=== PATIENT | female | born 1950 | race Caucasian/White ===

== ENCOUNTER → 2017-06-03 15:42 | Outpatient (CLI) | payer MEDICARE, SELFPAY ==
[2017-06-03 19:10] LABS: T4 Free Direct 0.86 ng/dL (0.76-1.46); Thyroid Stim Hormone (TSH) 2.85 uIU/mL (0.358-3.74)
== END ==
PROVIDERS: Family Provider Family Medicine; PCP Student in an Organized Health Care Education/Training Program; Visit Provider Dermatology
DX: L65.9 Nonscarring hair loss, unspecified (principal); L82.0 Inflamed seborrheic keratosis; R20.8 Other disturbances of skin sensation; L53.8 Other specified erythematous conditions; D22.39 Melanocytic nevi of other parts of face; Z78.9 Other specified health status
CPT/HCPCS: 36415; 84439; 84443

== ENCOUNTER 2018-08-25 12:00 | Observation (INO) | payer MEDICARE, SELFPAY ==
[2018-08-25] VITALS (13 sets, daily range): BP systolic 111–165; BP diastolic 74–85; PULSE 80–106; RESP 16–24; TEMP 36.4–37.2; O2SAT 94–98; BMI 37.9; BMI 37.0
--- NOTE | 2018-08-25 12:02 | NURSING ---
NO OLD EKGS
--- NOTE | 2018-08-25 12:14 | EKG12_ITS ---
Test Reason : CHEST TIGHTNESS Blood Pressure : / mmHG Vent. Rate : 098 BPM Atrial Rate : 098 BPM P-R Int : 120 ms QRS Dur : 092 ms QT Int : 356 ms P-R-T Axes : 047 022 061 degrees QTc Int : 454 ms Normal sinus rhythm Normal ECG Confirmed by OLGA TYLER, HOLLI ([id number]), electronic news gathering editor AIDAN PALACIOS ([id number]) on 08/27/2018 6:37:15 AM Referred By: Joe Green Confirmed By:HOLLI ESPINOZA MD
--- NOTE | 2018-08-25 12:14 | RAD_ITS ---
STUDY: X-RAY CHEST REASON FOR EXAM: Female, 67 years old. Chest pain. TECHNIQUE: Single AP portable view of the chest. COMPARISON: None. FINDINGS: EKG electrodes are seen. The lungs are clear and expanded. There is no demonstrated pleural abnormality. Normal size heart. Normal mediastinum and daisha. Normal visualized pulmonary arteries. There is atherosclerotic tortuosity of the aortic arch and descending thoracic aorta. There are diffuse degenerative changes of the visualized thoracic spine. Normal visualized ribs, clavicles, and shoulders. There is no demonstrated abnormality of the visualized soft tissue structures of the upper abdomen. RAD/Chest 1 View (Portable) IMPRESSION: No acute abnormality is seen. Electronically Signed: Gurdeep Pugh, at 12:50 EDT , Service support ,
[2018-08-25 12:20] LABS: Absolute Lymphocyte Count 2.12 X10^3/ul (0.83-4.51); Absolute Neutrophil Count 3.9 X10^3/uL (2.0-7.7); Basophil# 0.02 X10^3/uL; Basophil% 0.3 % (0-1); Eosinophil# 0.09 X10^3/uL; Eosinophils% 1.4 % (0-5); Hematocrit 40.9 % (37-47); Hemoglobin 13.7 g/dl (12.0-15.0); Lymphocyte # 2.12 X10^3/ul (4.0); Lymphocyte % 33.1 % (19-41); Mean Corp Hgb Conc 33.5 g/gl (32-36); Mean Corpuscular Hgb 28.8 pg (27.0-32.0); Mean Corpuscular Volume 86.1 fL (81-99); Mean Platelet Vol. 9.9 fl (6.2-12.0); Monocyte# 0.31 X10^3/uL; Monocyte% 4.8 % (0-10); Neutrophil # 3.85 X10^3/uL (2.7-7.7); Neutrophil % 60.2 % (47-70); Platelet Count 221 K/mm3 (150-450); RBC Distribution Width SD 44.2 fl (35.1-43.9); Red Blood Count 4.75 M/mm3 (4.2-5.4); White Blood Count 6.4 K/mm3 (4.4-11.0)
[2018-08-25 12:21] LABS: POSITIVE COUNT NO; POSITIVE DIFFERENTIAL NO; POSITIVE MORPHOLOGY NO
[2018-08-25] MEDS: Aspirin 81 MG TAB.CHEW 324 MG PO (12:24)
[2018-08-25] MEDS: Nitroglycerin SL (ED/IMG/CATH) 0.4 MG TABLET SUBLINGUAL ×2 (12:25→12:31)
[2018-08-25] MEDS: 0.9% Normal Saline 1,000 ML 150 ML IV (12:30)
[2018-08-25 12:44] LABS: Anion Gap 9 (5-15); BUN 12 mg/dL (7-18); BUN/Creat Ratio 11.7 RATIO (10-20); Calcium,Total 9.1 mg/dL (8.5-10.1); Chloride 106 mmol/L (98-107); Creatinine, Serum 1.03 mg/dL (0.55-1.02); EST Glomerular Filtration Rate 57 mL/min (>60); Est Glom Filt Rate - Afr Amer 69 mL/min (>60); Estimated Creatinine Clearance 43.84 ml/min; Glucose 154 mg/dL (74-106); Potassium 3.8 mmol/L (3.5-5.1); Sodium Level 141 mmol/L (136-145)
--- NOTE | 2018-08-25 13:15 | ED.VISSUMM ---
- ER Visit Summary Date of Service: 08/25/18 Chief Complaint: [Chest pain] History of Present Illness: The patient is a 67 F [Zentz to the emergency department complaint of chest discomfort that she is had for about 3 days. Patient had continuous tightness in her upper chest and throat. Patient complains of exertional dyspnea. Patient complains of fatigue. Patient denies any radiation of the pain into the arms or neck or jaw. Patient denies nausea or vomiting. She has not had symptoms like this before. She denies recent travel or surgery. Patient does have history of diabetes and high cholesterol. Her last stress test was in 2016.] Physical Examination: [HEENT-PERRLA, EOMI. Cranial nerves II through XII grossly intact. TMs clear. Mucous membranes moist. No adenopathy. Cardiovascular-regular rate and rhythm without murmur or ectopy Lungs-clear to auscultation, chest wall stable without crepitus or subcu emphysema Abdomen-normoactive bowel sounds, soft, nontender, no rebound or rigidity, no peritoneal signs. Extremities-intact ?4, normal range of motion, normal pulses, atraumatic] Test Results: [EKG obtained arrival shows sinus rhythm with a ventricular rate of 98 bpm with no acute I segment changes. CBC with differential is normal. Chemistries were normal. Troponin was negative. Chest x-ray was normal.] Emergency Department Course and Treatment: [She received aspirin and was given 1 sublingual nitro every 5 minutes x3 and her pain resolved. Patient had a inch of Nitropaste placed to the anterior chest wall.] Treatment Plan: [Admit for further work-up and evaluation of her chest pain] Disposition: [Admit] Impression: [Chest pain-rule out acute coronary syndrome] This note was generated with [employer] dictation software. It may contain incorrect words, spelling, and punctuation that were not noted in review of the chart prior to signing ED Disposition - Plan for ED Patient: Referrals: Wilbert Ayers DO [Primary Care Provider] -
--- NOTE | 2018-08-25 13:18 | NURSING ---
DR HANKINS FOR DR AVILA
--- NOTE | 2018-08-25 13:25 | NURSING ---
PCU OBS PAPA HANKINS
[2018-08-25] MEDS: Nitroglycerin Oint 1 INCH PACKET TRANSDERM. (13:35)
--- NOTE | 2018-08-25 13:43 | PCM.HP.STD ---
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 She states that this feels primarily like a tightness in her neck that makes her short of breath. She stated it has been constant since it started on Thursday. She also has had intermittent left-sided shooting pains in her chest wall. This lasted about 10 minutes. Her symptoms were completely resolved after she had received nitroglycerin today. She does have associated left arm numbness, no radiation into the jaw or back. No diaphoresis, no nausea or vomiting. She had a stress test several years ago which was negative, denies any history of heart disease. She has no smoking history, she does have a family history-her dad had CAD. [] Past Medical History Past Medical History (Chronic Problems): Chronic Problems Obesity (Chronic) HLD (hyperlipidemia) (Chronic) Anxiety and depression (Chronic) Allergies amoxicillin Allergy (Verified 08/25/18 12:17) Rash cortisone Allergy (Verified 08/25/18 12:17) Swelling diclofenac Allergy (Verified 08/25/18 12:17) Rash diphenhydramine [From Benadryl] Allergy (Verified 08/25/18 12:17) Rash latex Allergy (Verified 08/25/18 12:17) Rash selenium Allergy (Verified 08/25/18 12:17) Rash sucralfate Allergy (Verified 08/25/18 12:17) Rash tree and shrub pollen Allergy (Verified 08/25/18 12:17) Other SEASONAL ALLERGIES acetaminophen [From Percocet] Adverse Reaction (Verified 08/25/18 12:17) Other FACIAL FLUSHING azithromycin Adverse Reaction (Verified 08/25/18 12:17) Upset Stomach bethanechol Adverse Reaction (Verified 08/25/18 12:17) Unknown ciprofloxacin Adverse Reaction (Verified 08/25/18 12:17) Mucosal lesions codeine Adverse Reaction (Verified 08/25/18 12:17) Unknown metformin Adverse Reaction (Verified 08/25/18 12:17) Upset Stomach oxycodone [From Percocet] Adverse Reaction (Verified 08/25/18 12:17) Other FACIAL FLUSHING Sulfa (Sulfonamide Antibiotics) Adverse Reaction (Verified 08/25/18 12:17) Upset Stomach ANTIHISTAMINES Adverse Reaction (Uncoded 08/25/18 12:17) Unknown Home Medications: Ambulatory Orders Medication Instructions Recorded Cholecalciferol (Vitamin D3) 2,000 unit PO DAILY 08/25/18 [Vitamin D3] Diphenhydramine HCl [Zzzquil] 25 mg PO QHS 08/25/18 Levothyroxine [Synthroid] 75 mcg PO DAILY 08/25/18 Pantoprazole Sodium [Protonix] 40 mg PO BID 08/25/18 Paroxetine HCl [Paxil] 40 mg PO DAILY 08/25/18 Simvastatin [Zocor] 40 mg PO QHS 08/25/18 Triamcinolone 0.1% Cream [Kenalog] 1 applic TOPICAL BID 08/25/18 Surgical History: cholecystectomy, hysterectomy, tonsillectomy, - - Colon resection, bilateral glaucoma surgery, carpal tunnel surgery, trigger finger release Psychiatric History: Anxiety, Depression 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 Denies: Chest Pressure, Edema, Heaviness, Light Headedness, Palpitations, Syncope Respiratory: Reports: Shortness of Breath. Denies: Cough, Shortness of breath at rest, Sputum production Gastrointestinal: Denies: Abdominal Pain, Nausea, Vomiting Genitourinary: Denies: Dysuria Musculoskeletal: Denies: Joint Pain, Joint Tenderness Skin: Denies: Rash, Wounds Neurological: Denies: Numbness, Tingling, Focal weakness Psychiatric: Denies: Anxiety, Depression, Homicidal Ideations, Suicidal Ideations Hematologic/ Lymphatic: Denies: Easy Bruising, Easy Bleeding VTE Information - Inpt Only VTE Present on Admission: No VTE Mechan Device Prophylaxis: None VTE Pharm Prophylaxis ordered?: Yes Patient Problems: Active and Suspected Problems Chest pain (Acute) - Physical Exam General: Alert, Oriented x3, Cooperative HEENT: Atraumatic, PERRLA, EOMI, Normocephalic Neck: Supple, No JVD, Negative Carotid Bruits Lungs: Clear to auscultation, Normal air movement Cardiovascular: Regular rate, No murmurs Abdomen: Bowel Sounds Present, Soft, Non Tender, Obese Extremities: No edema, Capillary Refill Less than 3 Seconds Skin: No rashes, No breakdown Musculoskeletal: No Tenderness to Palpation of Joints or Extremities Neurological: Cranial nerves II-XII grossly intact Psych/Mental Status: Normal Affect, Appropriate Vital Signs Temp Pulse Resp BP Pulse Ox 98.9 F 89 22 H 138/77 H 96 08/25/18 12:01 08/25/18 13:35 08/25/18 13:32 08/25/18 13:35 08/25/18 13:32 Oxygen Flow Rate (L/min) 2 Oxygen Delivery Method Nasal Cannula Weight: 214 lb 4.629 oz Body Mass Index (BMI) 37.9 Laboratory Tests Past 24 Hrs 08/25/18 08/25/18 12:10 12:10 WBC 6.4 RBC 4.75 Hgb 13.7 Hct 40.9 MCV 86.1 MCH 28.8 MCHC 33.5 RDW 14.0 RDW Differential 44.2 H Plt Count 221 MPV 9.9 Immature Gran % (Auto) 0.200 Neut % (Auto) 60.2 Lymph % (Auto) 33.1 [place] % (Auto) 4.8 Eos % (Auto) 1.4 Baso % (Auto) 0.3 Absolute Neuts (auto) 3.9 Absolute Lymphs (auto) 2.12 Total Counted Not Reportable Sodium 141 Potassium 3.8 Chloride 106 Carbon Dioxide 26.0 Anion Gap 9 BUN 12 Creatinine 1.03 H Estim Creat Clear Calc 43.84 Est GFR (MDRD) Af Amer 69 Est GFR (MDRD) Non-Af 57 L BUN/Creatinine Ratio 11.7 Glucose 154 H Calcium 9.1 Troponin I < 0.015 Assessment/Plan All Active Problems Chest pain (Acute) 1. Chest pain-no history of cardiac disease. Positive family history, history of hyperlipidemia. Last stress was several years ago, negative at that time. In the ER she was mildly tachycardic and tachypneic, chest x-ray was negative, troponin was negative, and EKG was unremarkable. She will be admitted to the PCU on telemetry for chest pain work-up. We will cycle enzymes, repeat EKG, stress test in the morning. 2. Hyperlipidemia- on simvastatin 4. Anxiety depression and insomnia-continue home meds 5. 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 6. Hypothyroidism-Synthroid 7. GERD-Protonix DVT prophylaxis: Lovenox This patient was seen by Js Gurrola PA-C under the supervision of Doctor Peter. <Joe Green F - Last Filed: 08/25/18 14:04> History of Present Illness The patient is a 67 year old F [] Past Medical History Allergies amoxicillin Allergy (Verified 08/25/18 12:17) Rash cortisone Allergy (Verified 08/25/18 12:17) Swelling diclofenac Allergy (Verified 08/25/18 12:17) Rash diphenhydramine [From Benadryl] Allergy (Verified 08/25/18 12:17) Rash latex Allergy (Verified 08/25/18 12:17) Rash selenium Allergy (Verified 08/25/18 12:17) Rash sucralfate Allergy (Verified 08/25/18 12:17) Rash tree and shrub pollen Allergy (Verified 08/25/18 12:17) Other SEASONAL ALLERGIES acetaminophen [From Percocet] Adverse Reaction (Verified 08/25/18 12:17) Other FACIAL FLUSHING azithromycin Adverse Reaction (Verified 08/25/18 12:17) Upset Stomach bethanechol Adverse Reaction (Verified 08/25/18 12:17) Unknown ciprofloxacin Adverse Reaction (Verified 08/25/18 12:17) Mucosal lesions codeine Adverse Reaction (Verified 08/25/18 12:17) Unknown metformin Adverse Reaction (Verified 08/25/18 12:17) Upset Stomach oxycodone [From Percocet] Adverse Reaction (Verified 08/25/18 12:17) Other FACIAL FLUSHING Sulfa (Sulfonamide Antibiotics) Adverse Reaction (Verified 08/25/18 12:17) Upset Stomach ANTIHISTAMINES Adverse Reaction (Uncoded 08/25/18 12:17) Unknown - Physical Exam Vital Signs Temp Pulse Resp BP Pulse Ox 98.9 F 89 22 H 138/77 H 96 08/25/18 12:01 08/25/18 13:35 08/25/18 13:32 08/25/18 13:35 08/25/18 13:32 Oxygen Flow Rate (L/min) 2 Oxygen Delivery Method Nasal Cannula Weight: 214 lb 4.629 oz Body Mass Index (BMI) 37.9 Laboratory Tests Past 24 Hrs 08/25/18 08/25/18 12:10 12:10 WBC 6.4 RBC 4.75 Hgb 13.7 Hct 40.9 MCV 86.1 MCH 28.8 MCHC 33.5 RDW 14.0 RDW Differential 44.2 H Plt Count 221 MPV 9.9 Immature Gran % (Auto) 0.200 Neut % (Auto) 60.2 Lymph % (Auto) 33.1 [place] % (Auto) 4.8 Eos % (Auto) 1.4 Baso % (Auto) 0.3 Absolute Neuts (auto) 3.9 Absolute Lymphs (auto) 2.12 Total Counted Not Reportable Sodium 141 Potassium 3.8 Chloride 106 Carbon Dioxide 26.0 Anion Gap 9 BUN 12 Creatinine 1.03 H Estim Creat Clear Calc 43.84 Est GFR (MDRD) Af Amer 69 Est GFR (MDRD) Non-Af 57 L BUN/Creatinine Ratio 11.7 Glucose 154 H Calcium 9.1 Troponin I < 0.015 Code Visit Addendum: Dr. Green I personally examined the patient and reviewed the chart. I agree with the above. She is 7-year-old female with a history of hypertension and hyperlipidemia presenting with 2 3 days of chest pain and dyspnea on exertion. She presented to the ER and her chest pain was completely relieved with nitroglycerin. She says she has a stress test few years ago which was normal. Will proceed with stress test in the morning, as well as trending her troponins. OBSV E&M: [id number] Initial observation care L3
--- NOTE | 2018-08-25 13:48 | HP.PCM_ITS ---
<Js Gurrola - Last Filed: 08/25/18 13:43> Problem List (1) Chest pain Status: Acute (2) Obesity Status: Chronic (3) HLD (hyperlipidemia) Status: Chronic (4) Anxiety and depression Status: Chronic History of Present Illness Date of Admission: 08/25/18 Chief Complaint: chest pain The patient is a 67 year old F with past medical history of obesity, colon resection in 2013 forgot paralysis, insomnia, anxiety and depression, hyperlipidemia, who presents to the emergency room today with complaints of ch est pain. She states that this feels primarily like a tightness in her neck that makes her short of breath. She stated it has been constant since it started on Thursday. She also has had intermittent left-sided shooting pains in her chest wall. This lasted about 10 minutes. Her symptoms were completely resolved after she had received nitroglycerin today. She does have associated left arm numbness, no radiation into the jaw or back. No diaphoresis, no nausea or vomiting. She had a stress test several years ago which was negative, denies any history of heart disease. She has no smoking history, she does have a family history-her dad had CAD. [] Past Medical History Past Medical History (Chronic Problems): Chronic Problems Obesity (Chronic) HLD (hyperlipidemia) (Chronic) Anxiety and depression (Chronic) Allergies amoxicillin Allergy (Verified 08/25/18 12:17) Rash cortisone Allergy (Verified 08/25/18 12:17) Swelling diclofenac Allergy (Verified 08/25/18 12:17) Rash diphenhydramine [From Benadryl] Allergy (Verified 08/25/18 12:17) Rash latex Allergy (Verified 08/25/18 12:17) Rash selenium Allergy (Verified 08/25/18 12:17) Rash sucralfate Allergy (Verified 08/25/18 12:17) Rash tree and shrub pollen Allergy (Verified 08/25/18 12:17) Other SEASONAL ALLERGIES acetaminophen [From Percocet] Adverse Reaction (Verified 08/25/18 12:17) Other FACIAL FLUSHING azithromycin Adverse Reaction (Verified 08/25/18 12:17) Upset Stomach bethanechol Adverse Reaction (Verified 08/25/18 12:17) Unknown ciprofloxacin Adverse Reaction (Verified 08/25/18 12:17) Mucosal lesions codeine Adverse Reaction (Verified 08/25/18 12:17) Unknown metformin Adverse Reaction (Verified 08/25/18 12:17) Upset Stomach oxycodone [From Percocet] Adverse Reaction (Verified 08/25/18 12:17) Other FACIAL FLUSHING Sulfa (Sulfonamide Antibiotics) Adverse Reaction (Verified 08/25/18 12:17) Upset Stomach ANTIHISTAMINES Adverse Reaction (Uncoded 08/25/18 12:17) Unknown Home Medications: Ambulatory Orders Medication Instructions Recorded Cholecalciferol (Vitamin D3) 2,000 unit PO DAILY 08/25/18 [Vitamin D3] Diphenhydramine HCl [Zzzquil] 25 mg PO QHS 08/25/18 Levothyroxine [Synthroid] 75 mcg PO DAILY 08/25/18 Pantoprazole Sodium [Protonix] 40 mg PO BID 08/25/18 Paroxetine HCl [Paxil] 40 mg PO DAILY 08/25/18 Simvastatin [Zocor] 40 mg PO QHS 08/25/18 Triamcinolone 0.1% Cream [Kenalog] 1 applic TOPICAL BID 08/25/18 Surgical History: cholecystectomy, hysterectomy, tonsillectomy, - - Colon resection, bilateral glaucoma surgery, carpal tunnel surgery, trigger finger release Psychiatric History: Anxiety, Depression 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 Denies: Chest Pressure, Edema, Heaviness, Light Headedness, Palpitations, Syncope Respiratory: Reports: Shortness of Breath. Denies: Cough, Shortness of breath at rest, Sputum production Gastrointestinal: Denies: Abdominal Pain, Nausea, Vomiting Genitourinary: Denies: Dysuria Musculoskeletal: Denies: Joint Pain, Joint Tenderness Skin: Denies: Rash, Wounds Neurological: Denies: Numbness, Tingling, Focal weakness Psychiatric: Denies: Anxiety, Depression, Homicidal Ideations, Suicidal Ideations Hematologic/ Lymphatic: Denies: Easy Bruising, Easy Bleeding VTE Information - Inpt Only VTE Present on Admission: No VTE Mechan Device Prophylaxis: None VTE Pharm Prophylaxis ordered?: Yes Patient Problems: Active and Suspected Problems Chest pain (Acute) - Physical Exam General: Alert, Oriented x3, Cooperative HEENT: Atraumatic, PERRLA, EOMI, Normocephalic Neck: Supple, No JVD, Negative Carotid Bruits Lungs: Clear to auscultation, Normal air movement Cardiovascular: Regular rate, No murmurs Abdomen: Bowel Sounds Present, Soft, Non Tender, Obese Extremities: No edema, Capillary Refill Less than 3 Seconds Skin: No rashes, No breakdown Musculoskeletal: No Tenderness to Palpation of Joints or Extremities Neurological: Cranial nerves II-XII grossly intact Psych/Mental Status: Normal Affect, Appropriate Vital Signs Temp Pulse Resp BP Pulse Ox 98.9 F 89 22 H 138/77 H 96 08/25/18 12:01 08/25/18 13:35 08/25/18 13:32 08/25/18 13:35 08/25/18 13:32 Oxygen Flow Rate (L/min) 2 Oxygen Delivery Method Nasal Cannula Weight: 214 lb 4.629 oz Body Mass Index (BMI) 37.9 Laboratory Tests Past 24 Hrs 08/25/18 08/25/18 12:10 12:10 WBC 6.4 RBC 4.75 Hgb 13.7 Hct 40.9 MCV 86.1 MCH 28.8 MCHC 33.5 RDW 14.0 RDW Differential 44.2 H Plt Count 221 MPV 9.9 Immature Gran % (Auto) 0.200 Neut % (Auto) 60.2 Lymph % (Auto) 33.1 [place] % (Auto) 4.8 Eos % (Auto) 1.4 Baso % (Auto) 0.3 Absolute Neuts (auto) 3.9 Absolute Lymphs (auto) 2.12 Total Counted Not Reportable Sodium 141 Potassium 3.8 Chloride 106 Carbon Dioxide 26.0 Anion Gap 9 BUN 12 Creatinine 1.03 H Estim Creat Clear Calc 43.84 Est GFR (MDRD) Af Amer 69 Est GFR (MDRD) Non-Af 57 L BUN/Creatinine Ratio 11.7 Glucose 154 H Calcium 9.1 Troponin I < 0.015 Assessment/Plan All Active Problems Chest pain (Acute) 1. Chest pain-no history of cardiac disease. Positive family history, history of hyperlipidemia. Last stress was several years ago, negative at that time. In the ER she was mildly tachycardic and tachypneic, chest x-ray was negative, troponin was negative, and EKG was unremarkable. She will be admitted to the PCU on telemetry for chest pain work-up. We will cycle enzymes, repeat EKG, stress test in the morning. 2. Hyperlipidemia- on simvastatin 4. Anxiety depression and insomnia-continue home meds 5. 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 6. Hypothyroidism-Synthroid 7. GERD-Protonix DVT prophylaxis: Lovenox This patient was seen by Js Gurrola PA-C under the supervision of Doctor Peter. <Joe Green F - Last Filed: 08/25/18 14:04> History of Present Illness The patient is a 67 year old F [] Past Medical History Allergies amoxicillin Allergy (Verified 08/25/18 12:17) Rash cortisone Allergy (Verified 08/25/18 12:17) Swelling diclofenac Allergy (Verified 08/25/18 12:17) Rash diphenhydramine [From Benadryl] Allergy (Verified 08/25/18 12:17) Rash latex Allergy (Verified 08/25/18 12:17) Rash selenium Allergy (Verified 08/25/18 12:17) Rash sucralfate Allergy (Verified 08/25/18 12:17) Rash tree and shrub pollen Allergy (Verified 08/25/18 12:17) Other SEASONAL ALLERGIES acetaminophen [From Percocet] Adverse Reaction (Verified 08/25/18 12:17) Other FACIAL FLUSHING azithromycin Adverse Reaction (Verified 08/25/18 12:17) Upset Stomach bethanechol Adverse Reaction (Verified 08/25/18 12:17) Unknown ciprofloxacin Adverse Reaction (Verified 08/25/18 12:17) Mucosal lesions codeine Adverse Reaction (Verified 08/25/18 12:17) Unknown metformin Adverse Reaction (Verified 08/25/18 12:17) Upset Stomach oxycodone [From Percocet] Adverse Reaction (Verified 08/25/18 12:17) Other FACIAL FLUSHING Sulfa (Sulfonamide Antibiotics) Adverse Reaction (Verified 08/25/18 12:17) Upset Stomach ANTIHISTAMINES Adverse Reaction (Uncoded 08/25/18 12:17) Unknown - Physical Exam Vital Signs Temp Pulse Resp BP Pulse Ox 98.9 F 89 22 H 138/77 H 96 08/25/18 12:01 08/25/18 13:35 08/25/18 13:32 08/25/18 13:35 08/25/18 13:32 Oxygen Flow Rate (L/min) 2 Oxygen Delivery Method Nasal Cannula Weight: 214 lb 4.629 oz Body Mass Index (BMI) 37.9 Laboratory Tests Past 24 Hrs 08/25/18 08/25/18 12:10 12:10 WBC 6.4 RBC 4.75 Hgb 13.7 Hct 40.9 MCV 86.1 MCH 28.8 MCHC 33.5 RDW 14.0 RDW Differential 44.2 H Plt Count 221 MPV 9.9 Immature Gran % (Auto) 0.200 Neut % (Auto) 60.2 Lymph % (Auto) 33.1 [place] % (Auto) 4.8 Eos % (Auto) 1.4 Baso % (Auto) 0.3 Absolute Neuts (auto) 3.9 Absolute Lymphs (auto) 2.12 Total Counted Not Reportable Sodium 141 Potassium 3.8 Chloride 106 Carbon Dioxide 26.0 Anion Gap 9 BUN 12 Creatinine 1.03 H Estim Creat Clear Calc 43.84 Est GFR (MDRD) Af Amer 69 Est GFR (MDRD) Non-Af 57 L BUN/Creatinine Ratio 11.7 Glucose 154 H Calcium 9.1 Troponin I < 0.015 Code Visit Addendum: Dr. Green I personally examined the patient and reviewed the chart. I agree with the above. She is 7-year-old female with a history of hypertension and h yperlipidemia presenting with 2 3 days of chest pain and dyspnea on exertion. She presented to the ER and her chest pain was completely relieved with nitroglycerin. She says she has a stress test few years ago which was normal. Will proceed with stress test in the morning, as well as trending her troponins. OBSV E&M: [id number] Initial observation care L3
--- NOTE | 2018-08-25 14:53 | CASEMGMT ---
RN CM Assessment Introduced role of RN CM to patient and patient Rodolfo at bedside.? Patient is alert, oriented and able?to participate in RN CM Assessment. ?Care providers, pharmacy, and demographics verified. Presentation: CP Admit Dx: CP Re-Admit: No Barriers/Issues: None PCP: Wilbert Ayers Specialists: None Preferred Pharmacy: [facility]- per google search given [place]. Insurance: MMO MCR Rx Benefit:?Yes MMO LNOK: Rodolfo Vizcarra LW/HPOA: Yes Both, HPOA at home and states is her Rodolfo Vizcarra. Aware not on file at [facility]. Living Arrangements:?Lives with her in a SS home, 2 steps to enter. ADL?s: Independent with ambulation and ADL's Transportation: Patient drives, upon DC DME: CPAP- does not use as it does not stay on. CM advised patient to f/u and discuss with her physician as there may be other alternative machine like the nasal one that she may qualify for and be better for her for compliance. HHC: None SNF: None Goal: Home, does not think will have any needs. Denies questions/concerns, aware CM remains available for any arising needs. DC PLAN: Home with no anticipated needs identified at this time. PIPO Mercedes
[2018-08-25] MEDS: Acetaminophen 325 MG Tablet 650 MG PO (17:39)
[2018-08-25] MEDS: 0.9% Normal Saline 1,000 ML 100 ML IV (17:39)
[2018-08-26 02:49] VITALS: BP 136/79; PULSE 74; RESP 16; TEMP 36.4; O2SAT 95
[2018-08-26] MEDS: 0.9% Normal Saline 1,000 ML 100 ML IV (02:53)
[2018-08-26 03:00] VITALS: PULSE 92
[2018-08-26 05:42] LABS: Absolute Lymphocyte Count 2.18 X10^3/ul (0.83-4.51); Absolute Neutrophil Count 3.1 X10^3/uL (2.0-7.7); Basophil# 0.01 X10^3/uL; Basophil% 0.2 % (0-1); Eosinophil# 0.11 X10^3/uL; Eosinophils% 1.9 % (0-5); Hematocrit 39.4 % (37-47); Hemoglobin 12.8 g/dl (12.0-15.0); Lymphocyte # 2.18 X10^3/ul (4.0); Lymphocyte % 36.8 % (19-41); Mean Corp Hgb Conc 32.5 g/gl (32-36); Mean Corpuscular Hgb 28.1 pg (27.0-32.0); Mean Corpuscular Volume 86.6 fL (81-99); Mean Platelet Vol. 10.2 fl (6.2-12.0); Monocyte# 0.48 X10^3/uL; Monocyte% 8.1 % (0-10); Neutrophil # 3.14 X10^3/uL (2.7-7.7); Neutrophil % 52.8 % (47-70); POSITIVE COUNT NO; POSITIVE DIFFERENTIAL NO; POSITIVE MORPHOLOGY NO; Platelet Count 196 K/mm3 (150-450); RBC Distribution Width CV 14.1 % (11.6-14.6); Red Blood Count 4.55 M/mm3 (4.2-5.4); White Blood Count 5.9 K/mm3 (4.4-11.0)
--- NOTE | 2018-08-26 05:55 | EKG12_ITS ---
Test Reason : AM EKG Blood Pressure : / mmHG Vent. Rate : 078 BPM Atrial Rate : 078 BPM P-R Int : 132 ms QRS Dur : 094 ms QT Int : 396 ms P-R-T Axes : 033 011 053 degrees QTc Int : 451 ms Normal sinus rhythm Normal ECG When compared with ECG of 25-AUG-2018 12:03, MANUAL COMPARISON REQUIRED, DATA IS UNCONFIRMED Confirmed by NORMA TYLER, LACEY ([id number]), mapping editor AIDAN PALACIOS ([id number]) on 08/27/2018 8:11:18 AM Referred By: Joe Green Confirmed By:LACEY GREEN MD
[2018-08-26 06:06] LABS: Anion Gap 8 (5-15); BUN 12 mg/dL (7-18); BUN/Creat Ratio 12.4 RATIO (10-20); Calcium,Total 8.5 mg/dL (8.5-10.1); Chloride 109 mmol/L (98-107); Creatinine, Serum 0.97 mg/dL (0.55-1.02); EST Glomerular Filtration Rate 61 mL/min (>60); Est Glom Filt Rate - Afr Amer 73 mL/min (>60); Estimated Creatinine Clearance 46.56 ml/min; Glucose 133 mg/dL (74-106); Potassium 4.3 mmol/L (3.5-5.1); Sodium Level 143 mmol/L (136-145)
[2018-08-26 06:08] LABS: Partial Thromboplast Time 24.9 Seconds (24.1-36.2); Prothrombin Time (Protime)PT. 12.8 SECONDS (11.7-14.9)
[2018-08-26 06:44] VITALS: BP 145/74; PULSE 81; RESP 16; TEMP 36.6; O2SAT 94
[2018-08-26 07:45] VITALS: PULSE 88
--- NOTE | 2018-08-26 11:08 | CASEMGMT ---
Per Admission Questions. Patient has a Healthcare LW and she is aware it is not on file at [facility]. She does not have a Healthcare POA. Leticia GRANT
[2018-08-26 11:30] VITALS: PULSE 84
[2018-08-26 12:06] VITALS: BP 145/67; PULSE 90; RESP 16; TEMP 36.6; O2SAT 94
--- NOTE | 2018-08-26 12:52 | STRESSREP ---
Stress Test Report Pharmacologic myocardial perfusion stress test. 67-year-old lady with a history of chest pain. Stress protocol: Resting EKG demonstrates normal sinus rhythm with a rate of 85 bpm normal intervals are noted resting blood pressures 150/90 mmHg. 0.4 mg of regadenoson was infused per usual protocol followed by rapid intravenous saline flush injection continuous EKG monitoring was performed. Patient maintained sinus rhythm throughout the recording. At rest there were no ST or T wave changes noted suggest abnormal flow reserve at peak infusion nonspecific ST-T wave changes were noted suggest abnormal flow reserve. Resting blood pressures 150/90 mmHg and a peak blood pressure 194/80 mmHg. No clinical angina was noted. Myocardial perfusion protocol. 15.0 mCi of technetium 99m sestamibi was injected at rest. 0.4 mg of regadenoson was infused per usual protocol peak infusion 45.7 mCi of technetium 99m sestamibi was injected stress images were obtained stress and rest images were reconstructed and compared in the short axis vertical and horizontal long axis. Gated images were also obtained next Perfusion SPECT analysis: Review of the stress images demonstrate normal uptake of tracer noted in all areas of the myocardium the resting images similarly demonstrate normal uptake of tracer noted in all areas of myocardium. No areas of reversibility are noted suggest ischemia no previous infarct is noted. Gated SPECT analysis: The gated ejection fraction is noted to be 84%. Conclusion: Normal pharmacologic myocardial perfusion stress test. Preserved ejection fraction.
--- NOTE | 2018-08-26 13:07 | DCINST_ITS ---
- Discharge Diagnoses Current Active Problems: Current Active and Chronic Problems Chest pain (Acute) Obesity (Chronic) HLD (hyperlipidemia) (Chronic) Anxiety and depression (Chronic) You will use the following diet at home:: No restrictions Instructions: ED Chest Pain NonCardiac Allergies/Adverse Reactions: Allergies amoxicillin Allergy (Verified 08/25/18 12:17) Rash cortisone Allergy (Verified 08/25/18 12:17) Swelling diclofenac Allergy (Verified 08/25/18 12:17) Rash diphenhydramine [From Benadryl] Allergy (Verified 08/25/18 12:17) Rash latex Allergy (Verified 08/25/18 12:17) Rash selenium Allergy (Verified 08/25/18 12:17) Rash sucralfate Allergy (Verified 08/25/18 12:17) Rash tree and shrub pollen Allergy (Verified 08/25/18 12:17) Other SEASONAL ALLERGIES acetaminophen [From Percocet] Adverse Reaction (Verified 08/25/18 12:17) Other FACIAL FLUSHING azithromycin Adverse Reaction (Verified 08/25/18 12:17) Upset Stomach bethanechol Adverse Reaction (Verified 08/25/18 12:17) Unknown ciprofloxacin Adverse Reaction (Verified 08/25/18 12:17) Mucosal lesions codeine Adverse Reaction (Verified 08/25/18 12:17) Unknown metformin Adverse Reaction (Verified 08/25/18 12:17) Upset Stomach oxycodone [From Percocet] Adverse Reaction (Verified 08/25/18 12:17) Other FACIAL FLUSHING Sulfa (Sulfonamide Antibiotics) Adverse Reaction (Verified 08/25/18 12:17) Upset Stomach ANTIHISTAMINES Adverse Reaction (Uncoded 08/25/18 12:17) Unknown Medications to take at Discharge Cholecalciferol (Vitamin D3) [Vitamin D3] 2,000 unit PO DAILY 08/25/18 Diphenhydramine HCl [Zzzquil] 25 mg PO QHS 08/25/18 Levothyroxine [Synthroid] 75 mcg PO DAILY 08/25/18 Pantoprazole Sodium [Protonix] 40 mg PO BID 08/25/18 Paroxetine HCl [Paxil] 40 mg PO DAILY 08/25/18 Simvastatin [Zocor] 40 mg PO QHS 08/25/18 Triamcinolone 0.1% Cream [Kenalog] 1 applic TOPICAL BID 08/25/18 Primary Care Physician: Wilbert Ayers DO [Primary Care Provider] - Please follow up with your Primary Care Physician in: in 5-7 days Test Results: Test results from this visit will be discussed in further detail at your follow- up appointment, if applicable. Proposed Discharge Date: 08/26/18
--- NOTE | 2018-08-26 13:08 | DS.PCM_ITS ---
Discharge Date and Diagnosis - Problem List Patient Problems: Active and Suspected Problems Chest pain (Acute) Date of Admission: 08/25/18 Date of Discharge: 08/26/18 - Primary Discharge Diagnosis Active and Suspected Problems Chest pain (Acute) - Secondary Discharge Diagnosis Chronic Problems Obesity (Chronic) HLD (hyperlipidemia) (Chronic) Anxiety and depression (Chronic) Hospital Course and Treatment Imaging Results: 08/26/18 05:55 Nuclear Stress Test - Chemical [NM] AM (NON MEDS) Summary of Care Provided: The patient is a 67 year old F admitted with chest pain 1. Chest pain patient was placed in a monitored bed did rule out [place] with serial cardiac enzymes subsequently underwent a nuclear stress test which was negative for stress-induced ischemia 2. GERD patient is on PPI patient was instructed to follow-up with PCP for subsequent evaluation including possible EGD 3. Dyslipidemia-patient is on statin therapy, continued at home dose 4. Hypothyroidism-patient is on levothyroxine home dose continued 5. Obesity with BMI of 37 patient was advised on weight loss 6. Depression with anxiety 7. DVT prophylaxis on Lovenox Patient Problems: Active and Suspected Problems Chest pain (Acute) Objective: GENERAL: cooperative HEENT: Atraumatic; moist oral mucosa EYES; Anicteric, Normal Conjunctiva NECK; supple, normal thyroid, no distended JVD. RESPIRATORY: Diminished to auscultation bilaterally, CARDIOVASCULAR: Regular S1 S2, no audible murmurs GI: soft, non-tender, normoactive bowel sounds, : No Renal angle tenderness; EXTREMITIES: No edema, no clubbing, no cyanosis. MUSCULOSKELETAL: No Joint Tenderness; no muscle waisting NEURO: Awake; no lateralizing signs. SKIN: No Rash PSYCH; Normal affect - Physical Exam Vital Signs Temp Pulse Resp BP Pulse Ox 97.8 F 90 16 145/67 H 94 08/26/18 12:06 08/26/18 12:06 08/26/18 12:06 08/26/18 12:08/26/18 12:06 Oxygen Flow Rate (L/min) 2 Oxygen Delivery Method Room Air Weight: 94.801 kg Body Mass Index (BMI) 37.0 Intake and Output for Last 24 Hours 08/24/18 08/25/18 08/26/18 23:59 23:59 23:59 Intake Total 1676 / 1676 1202 / 1202 Balance 1676 / 1676 1202 / 1202 Laboratory Tests Past 24 Hrs 08/25/18 08/25/18 08/26/18 15:12 17:50 05:15 WBC RBC Hgb Hct MCV MCH MCHC RDW RDW Differential Plt Count MPV Immature Gran % (Auto) Neut % (Auto) Lymph % (Auto) [place] % (Auto) Eos % (Auto) Baso % (Auto) Absolute Neuts (auto) Absolute Lymphs (auto) Total Counted PT INR APTT Sodium 143 Potassium 4.3 Chloride 109 H Carbon Dioxide 26.0 Anion Gap 8 BUN 12 Creatinine 0.97 Estim Creat Clear Calc 46.56 Est GFR (MDRD) Af Amer 73 Est GFR (MDRD) Non-Af 61 BUN/Creatinine Ratio 12.4 Glucose 133 H Calcium 8.5 Troponin I < 0.015 < 0.015 08/26/18 08/26/18 05:15 05:15 WBC 5.9 RBC 4.55 Hgb 12.8 Hct 39.4 MCV 86.6 MCH 28.1 MCHC 32.5 RDW 14.1 RDW Differential 44.0 H Plt Count 196 MPV 10.2 Immature Gran % (Auto) 0.200 Neut % (Auto) 52.8 Lymph % (Auto) 36.8 [place] % (Auto) 8.1 Eos % (Auto) 1.9 Baso % (Auto) 0.2 Absolute Neuts (auto) 3.1 Absolute Lymphs (auto) 2.18 Total Counted Not Reportable PT 12.8 INR 1.0 APTT 24.9 Sodium Potassium Chloride Carbon Dioxide Anion Gap BUN Creatinine Estim Creat Clear Calc Est GFR (MDRD) Af Amer Est GFR (MDRD) Non-Af BUN/Creatinine Ratio Glucose Calcium Troponin I Discharge Diet: No Restrictions Home Medications: Medications to take at Discharge Cholecalciferol (Vitamin D3) [Vitamin D3] 2,000 unit PO DAILY 08/25/18 Diphenhydramine HCl [Zzzquil] 25 mg PO QHS 08/25/18 Levothyroxine [Synthroid] 75 mcg PO DAILY 08/25/18 Pantoprazole Sodium [Protonix] 40 mg PO BID 08/25/18 Paroxetine HCl [Paxil] 40 mg PO DAILY 08/25/18 Simvastatin [Zocor] 40 mg PO QHS 08/25/18 Triamcinolone 0.1% Cream [Kenalog] 1 applic TOPICAL BID 08/25/18 Primary Care Physician: Wilbert Ayers DO [Primary Care Provider] - Please follow up with your Primary Care Physician in: in 5-7 days Patient Instructions: ED Chest Pain NonCardiac Disposition: Home Minutes spent on discharge:: 35 Patient Condition:: Stable Medical Necessity - Tobacco Use Smoking Status: Never smoker Tobacco Use: Non-smoker Meaningful Use Info Meaningful Use Diagnoses (Choose all that apply): None applicable Code Visit OBSV E&M: 54529 Observation care discharge
== END 2018-08-26 13:07 | disposition home or self-care (01) ==
LOC: ED 12:30 → PCU 13:41
PROVIDERS: Admitting Provider Family Medicine; Emergency Provider Emergency Medicine; Family Provider Student in an Organized Health Care Education/Training Program; PCP Student in an Organized Health Care Education/Training Program; Referring Provider Family Medicine; Visit Provider Internal Medicine
DX: R07.89 Other chest pain (principal); E11.9 Type 2 diabetes mellitus without complications; R06.09 Other forms of dyspnea; E66.9 Obesity, unspecified; E78.5 Hyperlipidemia, unspecified; E03.9 Hypothyroidism, unspecified; Z90.49 Acquired absence of other specified parts of digestive tract; K21.9 Gastro-esophageal reflux disease without esophagitis; Z79.899 Other long term (current) drug therapy; Z68.37 Body mass index [BMI] 37.0-37.9, adult; Z71.3 Dietary counseling and surveillance; F41.8 Other specified anxiety disorders
CPT/HCPCS: 36415; 71045; 78452; 80048; 84484; 85025; 85610; 85730; 93005; 93017; 96360; 96361; 99218; 99285; A9500; J7030; A4216; G0378; J2785

== ENCOUNTER → 2020-07-23 12:02 | Outpatient (CLI) | payer MEDICARE, SELFPAY ==
[2020-07-23 11:32] VITALS: BMI 36.4
[2020-07-23 16:31] LABS: T4 Free Direct 0.87 ng/dL (0.76-1.46); Thyroid Stim Hormone (TSH) 2.89 uIU/mL (0.358-3.74)
== END ==
PROVIDERS: PCP Student in an Organized Health Care Education/Training Program; Visit Provider Internal Medicine Endocrinology, Diabetes & Metabolism
DX: E78.5 Hyperlipidemia, unspecified (principal); E03.9 Hypothyroidism, unspecified; E11.65 Type 2 diabetes mellitus with hyperglycemia
CPT/HCPCS: 36415; 84439; 84443